=== PATIENT | male | born 1950 | race Caucasian/White ===

== ENCOUNTER 2020-07-16 07:17 | Outpatient (CLI) | payer MEDICARE, SELFPAY ==
[2020-07-16 08:05] VITALS: BMI 26.6
--- NOTE | 2020-07-16 08:06 | NMCV_ITS ---
NM guille perf SPECT r/s* [id number] Juan Pizarro Age: 69 Gender: M : 1950 Exam Date: 07/16/2020 08:06 Ordering Phys: Mounika Chowdary MD Technologist: EMMANUEL Garrison Exam Location: [facility] [place] Indications: CHEST PAIN STRESS TEST Please see separate stress test report in [facility] for full findings IMAGE PROTOCOL Rest/Stress 1 Exercise Day Radiopharmaceutical Dose (mCi) Administration Site Administered by Rest: Tc-99m 10.9 IV EMMANUEL Sawyer Sestamibi Stress:Tc-99m 32.5 IV EMMANUEL Sawyer Sestamibi Rest: 16-Jul-2020 60 Discovery 630 Stress: 16-Jul-2020 30 Discovery 630 Radiopharmaceutical was injected at 85 % maximum heart rate. Images obtained in supine and prone position. SPECT RESULTS Technical Quality: Excellent Raw Data Analysis: Normal Image Corrections: No attenuation or motion correction applied Summed Stress Score: 7 Summed Rest Score: 2 Summed Difference Score: 5 PERFUSION FINDINGS Moderate area of decreased aseptic was noted in the basal and mid inferolateral, mid inferior and apical lateral wall regions. Significant reversibility was noted in the inferolateral and inferior regions. FUNCTIONAL RESULTS (calculated via Gated SPECT) Stress Image LV EF (%): 70 Stress EDV (mL):92 TID: 1.02 Stress ESV (mL):28 FUNCTIONAL FINDINGS: Segmental wall motion analysis revealing no gross wall motion abnormalities. IMPRESSIONS 1. Myocardial perfusion imaging revealing moderate area of reversible defect in the inferior and inferolateral regions, suggestive of ischemia distribution of the circumflex artery predominantly with some involvement of the right coronary artery. 2. Normal LV ejection fraction 70%. 3. LV wall motion analysis revealing no gross wall motion abnormalities. 4. Normal LV volume. No similar previous studies are available for comparison Dr Mona Hoffman MD FACC (Electronically Signed) Final Date: 16 July 2020 12:38 S
--- NOTE | 2020-07-16 08:06 | ECG_ITS ---
[facility] Test Date: 2020-07-16 Pat Name: Juan Pizarro Department: Room: Gender: Male [employer]: Amna Kaufman : 1950 Requested By: Mounika Woody Order Number: [id number] Eva MD: Mona Hoffman M.D. Interpretive Statements NAME OF STUDY: EXERCISE SESTAMIBI STRESS TEST INDICATION: Chest Pain, PROCEDURE: The baseline electrocardiogram showed normal sinus rhythm with normal ST-Ts. At the baseline, the patient's blood pressure was 157/92 mm Hg with a heart rate of 59. The patient exercised for 8 minutes and 40 seconds on a standard Lorenzo protocol. Patient attained a maximum heart rate of 130 beats per minute(86% of the maximum predicted heart rate) with a blood pressure at the peak exercise of 197/89 mm Hg. The EKG at the peak exercise revealed [address] depression, upsloping, in the inferior and lead V6 ,suggestive of ischemia in the inferolateral region.. Patient did not have any chest pain or any significant arrhythmis with the exercise Sestamibi was injected 1 minute prior to the peak exercise During the recovery phase, there were no new changes. Blood pressure at the end of the recovery phase was 146/102 mm Hg with a heart rate of 67 per minute. CONCLUSION: 1. Abnormal EKG response to treadmill exercise suggestive of ischemia in the inferolateral wall region 2. No exercise-induced chest pain or cardiac arrhythmia 3. Fair exercise tolerance, attained a maximum of 10.2 METs 4. Sestamibi/Sestamibi perfusion results pending; see separate report. Electronically Signed On 07-17-2020 9:43:15 CDT by Mona Hoffman M.D. [id number]
[2020-07-16 09:54] VITALS: BP 179/86; PULSE 88
== END 2020-07-16 07:18 | disposition home or self-care (01) ==
PROVIDERS: Visit Provider Family Medicine
DX: R07.89 Other chest pain (principal); R94.31 Abnormal electrocardiogram [ECG] [EKG]
CPT/HCPCS: 78452; 93017; A9500

== ENCOUNTER 2020-09-10 12:25 | Outpatient (CLI) | payer MEDICARE, SELFPAY ==
--- NOTE | 2020-09-10 12:45 | USCV_ITS ---
Juan Pizarro Age: 70 Gender: M : 1950 Exam Date: 09/10/2020 12:43 Ordering Phys: Mona Hoffman MD ([email or web address]) Technologist: Kaushal Daly Exam Location: [facility] [place] Indication: CHEST PAIN BP: 135 / 75 HR: 63 Rhythm: Sinus Technical Quality: FAIR MEASUREMENTS (Male / Female) Normal Values 2D ECHO LV Diastolic Diameter PLAX 3.9 cm 4.2 - 5.9 / 3.9 - 5.3 cm LV Systolic Diameter PLAX 2.4 cm IVS Diastolic Thickness 1.3 cm 0.6 - 1.0 / 0.6 - 0.9 cm IVS Systolic Thickness 1.2 cm LVPW Diastolic Thickness 1.1 cm 0.6 - 1.0 / 0.6 - 0.9 cm LVPW Systolic Thickness 1.1 cm LVOT Diameter 2.0 cm LV Ejection Fraction 2D Teich 70.2 % LV Ejection Fraction MOD 2C 55.6 % LV Ejection Fraction 2C AL 55.8 % LA Diameter 3.1 cm LA Width 4.0 cm LA Height 4.3 cm RA Width 4.4 cm RA Height 5.3 cm Aorta at Sinotubular Diameter 2.4 cm M-MODE LV Diastolic Diameter MM 4.5 cm 4.2 - 5.9 / 3.9 - 5.3 cm LV Systolic Diameter MM 3.0 cm LV Ejection Fraction MM Teich 63.2 % IVS Diastolic Thickness MM 0.9 cm 0.6 - 1.0 / 0.6 - 0.9 cm IVS Systolic Thickness MM 1.6 cm LVPW Diastolic Thickness MM 1.2 cm 0.6 - 1.0 / 0.6 - 0.9 cm LVPW Systolic Thickness MM 1.5 cm RV Diastolic Diameter MM 1.5 cm Aortic Annulus Diameter 2.8 cm LA Ao Ratio MM 1.2 MV E Point Septal Separation 0.4 cm DOPPLER AV Peak Velocity 149.0 cm/s LVOT Peak Velocity 105.0 cm/s AV Area Cont Eq vti 3.1 cm squared AV Area Cont Eq pk 2.3 cm squared MV Area PHT 2.6 cm squared Mitral E to A Ratio 1.2 MV E' Velocity 46.5 cm/s Mitral E to MV E' Ratio 10.6 Mitral E to LV E' Lateral Ratio 9.4 Mitral E to LV E' Septal Ratio 12.1 TR Peak Velocity 227.0 cm/s TR Peak Gradient 20.6 mmHg TV Peak E Velocity 79.0 cm/s Right Atrial Pressure 3.0 mmHg Pulmonary Artery Systolic Pressu 23.6 mmHg FINDINGS Left Ventricle Normal left ventricular size and systolic function, EF 63 %. No regional wall motion abnormalities. Right Ventricle The right ventricle is normal in size and function. Right Atrium Mildly increased right atrial size. Left Atrium Mildly increased left atrial size. Mitral Valve Mild-moderate mitral valve regurgitation. Aortic Valve Minimally thickened aortic valve. Tricuspid Valve Mild tricuspid valve regurgitation. Pulmonic Valve Pulmonic valve not well visualized. Pericardium Normal pericardium without effusion. Aorta Normal ascending aorta dimension. CONCLUSIONS Normal left ventricular size and systolic function, EF 63 %. No regional wall motion abnormalities. Mild biatrial enlargement Mild-moderate mitral valve regurgitation. Mild tricuspid valve regurgitation. There is no pericardial effusion. There are no intracardiac masses. No previous study is available for comparison. Dr Mona Hoffman MD FACC (Electronically Signed) Final Date: 10 September 2020 17:19 S
== END 2020-09-10 12:26 | disposition home or self-care (01) ==
LOC: US 12:26
PROVIDERS: PCP Family Medicine; Visit Provider Internal Medicine Cardiovascular Disease
DX: I08.1 Rheumatic disorders of both mitral and tricuspid valves (principal); R07.89 Other chest pain
CPT/HCPCS: 93306

== ENCOUNTER 2021-04-24 07:54 | Outpatient (CLI) | payer MEDICARE, SELFPAY ==
[2021-04-24 08:30] LABS: Chol HDL Ratio 2.87 mg/dL (1.0-5.00); Cholesterol 158 mg/dL (0-200); HDL Cholesterol 55 mg/dL (60-100); LDL Cholesterol Calculated 92 mg/dL (50-129); LDL HDL Ratio 1.67 RATIO (0.00-3.22); Triglycerides 54 mg/dL (0-150)
== END 2021-04-24 07:55 | disposition home or self-care (01) ==
LOC: LAB 07:58
PROVIDERS: PCP Family Medicine; Visit Provider Internal Medicine Cardiovascular Disease
DX: E78.5 Hyperlipidemia, unspecified (principal)
CPT/HCPCS: 36415; 80061

== ENCOUNTER → 2021-06-25 09:01 | Outpatient (BNVA) | payer MEDICARE, SELFPAY | PROVIDERS: PCP Family Medicine; Visit Provider Internal Medicine Cardiovascular Disease | DX: E78.5 Hyperlipidemia, unspecified (principal); I25.10 Atherosclerotic heart disease of native coronary artery without angina pectoris; R07.89 Other chest pain | CPT/HCPCS: 80061; 80076 ==

== ENCOUNTER → 2022-06-09 10:30 | Outpatient (BNVA) | payer MEDICARE, SELFPAY | PROVIDERS: PCP Family Medicine; Visit Provider Internal Medicine Cardiovascular Disease | DX: I25.10 Atherosclerotic heart disease of native coronary artery without angina pectoris (principal); I10 Essential (primary) hypertension; E78.5 Hyperlipidemia, unspecified; Z78.9 Other specified health status | CPT/HCPCS: 99213; 99214 ==

== ENCOUNTER → 2022-12-08 10:04 | Outpatient (BNVA) | payer MEDICARE, SELFPAY | PROVIDERS: PCP Family Medicine; Visit Provider Internal Medicine Cardiovascular Disease | DX: I25.10 Atherosclerotic heart disease of native coronary artery without angina pectoris (principal); I10 Essential (primary) hypertension; E78.5 Hyperlipidemia, unspecified; R00.1 Bradycardia, unspecified; Z79.82 Long term (current) use of aspirin | CPT/HCPCS: 93005; 99214 ==

== ENCOUNTER → 2023-12-07 09:44 | Outpatient (BNVA) | payer MEDICARE, SELFPAY | PROVIDERS: PCP Family Medicine; Visit Provider Internal Medicine Cardiovascular Disease | DX: I25.10 Atherosclerotic heart disease of native coronary artery without angina pectoris (principal); E78.5 Hyperlipidemia, unspecified; I10 Essential (primary) hypertension; R00.1 Bradycardia, unspecified; I34.0 Nonrheumatic mitral (valve) insufficiency | CPT/HCPCS: 99214 ==

== ENCOUNTER 2023-12-15 08:37 | Outpatient (CLI) | payer MEDICARE, SELFPAY ==
[2023-12-15 09:47] LABS: Albumin Level 4.6 g/dL (3.5-5.2); Alkaline Phosphatase 47 U/L (40-130); Chol HDL Ratio 3.93 mg/dL (1.0-5.00); Cholesterol 169 mg/dL (0-200); Globulin 2.8 g/dL (1.3-4.6); HDL Cholesterol 43 mg/dL (60-100); LDL Cholesterol Calculated 105 mg/dL (50-129); LDL HDL Ratio 2.44 RATIO (0.00-3.22); Total Bilirubin 0.5 mg/dL (0.15-1.2); Total Protein 7.4 g/dL (6.6-8.7); Triglycerides 106 mg/dL (0-150)
[2023-12-15 10:12] LABS: Alanine Aminotransferase 40 U/L (0-41); Aspartate Amino Transferase 39 U/L (0-40)
== END 2023-12-15 08:38 | disposition home or self-care (01) ==
LOC: LAB 08:38
PROVIDERS: PCP Family Medicine; Visit Provider Internal Medicine Cardiovascular Disease
DX: E78.5 Hyperlipidemia, unspecified (principal)
CPT/HCPCS: 36415; 80061; 80076

== ENCOUNTER → 2025-01-30 15:05 | Outpatient (BNVA) | payer MEDICARE, SELFPAY | PROVIDERS: PCP Family Medicine; Visit Provider Internal Medicine Cardiovascular Disease | DX: I25.10 Atherosclerotic heart disease of native coronary artery without angina pectoris (principal); I10 Essential (primary) hypertension; E78.5 Hyperlipidemia, unspecified; R00.1 Bradycardia, unspecified; I34.0 Nonrheumatic mitral (valve) insufficiency; R07.9 Chest pain, unspecified | CPT/HCPCS: 93005; 99214 ==

== ENCOUNTER 2025-03-10 14:02 | Outpatient (CLI) | payer MEDICARE, SELFPAY ==
--- NOTE | 2025-03-10 14:15 | USCV_ITS ---
Juan Pizarro Age: 74 Gender: M : 1950 Exam Date: 03/10/2025 14:52 Ordering Phys: Mona Hoffman MD ([email or web address]) Technologist: Ulisses Mott Exam Location: [facility] [place] Indication: MR BP: 112 / 74 HR: 52 Rhythm: Sinus Technical Quality: Adequate MEASUREMENTS (Male / Female) Normal Values 2D ECHO LV Diastolic Diameter PLAX 3.8 cm 4.2 - 5.9 / 3.9 - 5.3 cm IVS Diastolic Thickness 1.2 cm 0.6 - 1.0 / 0.6 - 0.9 cm IVS Systolic Thickness 1.1 cm LVPW Diastolic Thickness 1.6 cm 0.6 - 1.0 / 0.6 - 0.9 cm LVPW Systolic Thickness 1.6 cm LVOT Diameter 2.0 cm LV Ejection Fraction 2D Teich 64.5 % LV Ejection Fraction MOD 4C 76.4 % LV Ejection Fraction MOD 2C 69.6 % LV Ejection Fraction 2C AL 70.2 % RA Systolic Volume 4C AL 51.9 ml RA Systolic Volume 4C MOD 53.4 ml LA Sys Volume AL 51.6 cm cubed LA Sys Volume Index AL 25.8 cm cubed/m squared Aorta at Sinotubular Diameter 1.9 cm IVC Diameter 1.6 cm M-MODE LA Ao Ratio MM 1.5 AV Cusp Separation MM 1.4 cm DOPPLER AV Peak Velocity 169.0 cm/s LVOT Peak Velocity 111.0 cm/s AV Area Cont Eq vti 2.7 cm squared AV Area Cont Eq pk 2.2 cm squared MV Peak Velocity 102.0 cm/s MV Area PHT 3.5 cm squared Mitral E to A Ratio 1.2 TR Peak Velocity 388.0 cm/s TR Peak Gradient 60.2 mmHg TR Mean Velocity 317.0 cm/s TR Mean Gradient 42.9 mmHg TR Velocity Time Integral 106.7 cm PV Peak Velocity 111.0 cm/s RV Ejection Time 0.3 s FINDINGS Left Ventricle Normal left ventricular size and systolic function, EF 70%.no regional wall motion abnormalities. Right Ventricle The right ventricle is normal in size and function. Right Atrium The right atrium is normal in size. Left Atrium The left atrium is normal in size. Mitral Valve No gross abnormalities noted Aortic Valve No gross abnormalities noted Tricuspid Valve No gross abnormalities noted Pulmonic Valve No gross abnormalities noted Pericardium Normal pericardium without effusion. Aorta Normal ascending aorta dimension. IVC Normal inferior vena cava. CONCLUSIONS Normal left ventricular size and systolic function, EF 70%.no regional wall motion abnormalities. Normal cardiac chamber sizes. No gross valvular abnormalities. There is no pericardial effusion. There are no intracardiac masses. Compared to study from 09/10/2020, the cardiac chamber sizes are within normal limits with no significant valve lesions Dr Mona Hoffman MD FACC (Electronically Signed) Final Date: 10 March 2025 21:32 S
== END 2025-03-10 14:03 | disposition home or self-care (01) ==
PROVIDERS: PCP Family Medicine; Visit Provider Internal Medicine Cardiovascular Disease
DX: I34.0 Nonrheumatic mitral (valve) insufficiency (principal); I25.10 Atherosclerotic heart disease of native coronary artery without angina pectoris
CPT/HCPCS: 93306

== ENCOUNTER → 2025-07-04 12:23 | Outpatient (BNVA) | payer MEDICARE, SELFPAY | PROVIDERS: PCP Family Medicine; Visit Provider Family Medicine | DX: R35.0 Frequency of micturition (principal); Z00.00 Encounter for general adult medical examination without abnormal findings; Z13.6 Encounter for screening for cardiovascular disorders; Z51.81 Encounter for therapeutic drug level monitoring; E55.9 Vitamin D deficiency, unspecified | CPT/HCPCS: 80053; 80061; 82306; 84153; 85025; 87210 ==